=== PATIENT | male | born 1975 | race Two or more races ===

== ENCOUNTER 2023-01-02 05:38 | Day surgery (SDC) | payer OTHER | END 2023-01-02 10:45 | disposition home or self-care (01) | LOC: AMB-ENDOS 05:38 | PROVIDERS: ATTEND Surgery | DX: K29.50 Unspecified chronic gastritis without bleeding (principal); K44.9 Diaphragmatic hernia without obstruction or gangrene; E66.09 Other obesity due to excess calories; R10.13 Epigastric pain; Z20.822 Contact with and (suspected) exposure to COVID-19 ==